=== PATIENT | female | born 1930 | race Caucasian/White ===

== ENCOUNTER 2016-11-06 17:05 | Inpatient (IN) | payer OTHER ==
[~2016-11-06] VITALS: Ht 152.4 cm; Wt 61.0 kg
[~2016-11-06 17:05] MED LIST: CHEWABLE MULTI1 EACH PO; COMBIGAN O20 DROP/5; COSOPT EYE DROPS5 ML LEFT EYE; FISH OIL 1,2001 EAC4 PO; GLUCOPHAGE500 MG PO; LISINOPRIL5 MG PO; PLAVIX75 MG PO; PREDNISOLONE AC15 ML RIGHT EYE; TEARS PURE DROP15 ML; VITAMIN D-32000 UNI1 PO; ZIOPTAN 0.00151 EACH BOTH EYES
[2016-11-06 18:37] LABS: EOSINOPHIL (%) 0 % (0-5); HEMATOCRIT 47.4 % (36.0-46.0); IMMATURE GRANULOCYTE (%) 0.7 % (0.0-0.7); IMMATURE GRANULOCYTE COUNT 0.1 K/uL; INSTRUMENT ABS NEUTROPHIL CT 15.6 K/uL; LYMPHOCYTE COUNT 0.6 K/uL (1.0-2.8); MCH 29.9 PG (29.0-34.0); MCHC 32.7 G/DL (30.0-36.0); MCV 91.3 FL (83-99); MEAN PLAT.VOLUME 10.4 uM^3 (9.5-12.4); MONOCYTE (%) 5.3 % (3-12); MONOCYTE COUNT 0.9 K/uL (0-0.8); NEUTROPHIL (%) 90.6 % (45-76); NEUTROPHIL COUNT 15.6 K/uL (1.8-6.4); PLATELET COUNT 220 K/uL (156-360); RBC DIS.WIDTH-SD 43.8 % (39-53); RED BLOOD COUNT 5.19 M/uL (3.80-5.20); WHITE BLOOD COUNT 17.3 K/uL (4.1-10.2)
[2016-11-06 18:50] LABS: CHLORIDE 104 mEq/L (99-109); POTASSIUM 4.5 mEq/L (3.7-5.4); SODIUM 141 mEq/L (136-147)
[2016-11-06 18:52] LABS: GLUCOSE 165 mg/dL (70-99)
[2016-11-06 18:53] LABS: ANION GAP 15 MEQ/L (2-14)
[2016-11-06 18:56] LABS: GFR ESTIMATE (CALCULATED) > 59 mL/min/
[2016-11-06 18:57] LABS: UREA NITROGEN (BUN) 18 mg/dL (9-23)
[2016-11-06 18:58] LABS: CREATINE KINASE 304 IU/L (1-294)
[2016-11-06 18:59] LABS: TROP-I INTERPRETATION NEGATIVE; TROPONIN-I < 0.01 ng/mL (0.0-0.30)
[2016-11-06] MEDS ORDERED: MYRBETRIQ25 MG PO (21:23)
[2016-11-06] MEDS ORDERED: LATANOPROST2.5 ML BOTH EYES (21:23)
[2016-11-06] MEDS ORDERED: VITAMIN D2000 UNIT PO (21:24)
[2016-11-06] MEDS ORDERED: KRILL OIL 1,001 EACH PO (21:24)
[2016-11-06] MEDS ORDERED: LO-DOSE ASPIRIN81 M1 PO (21:25)
[2016-11-06] MEDS ORDERED: CHEWABLE-VITE1 EACH PO (21:25)
[2016-11-06] MEDS ORDERED: PRAVASTATIN SOD40 MG PO (21:25)
[2016-11-06] MEDS ORDERED: [UNRECOGNIZED DRUG - REMARK] RIGHT EYE (21:27)
[2016-11-06 21:28] LABS: ADD MIUA? YES; BILIRUBIN NEGATIVE; BLOOD MODERATE; COLOR YELLOW ((YELLOW)); GLUCOSE (STRIP) 50; KETONES 80; LEUKOCYTES NEGATIVE; NITRITE NEGATIVE; PROTEIN (STRIP) 30; SPECIFIC GRAVITY 1.013 (1.000-1.030); UROBILINOGEN 0.2 MG/DL (0.2-1.0)
[2016-11-06 22:02] LABS: BACTERIA RARE /HPF; EPITHELIAL CELLS NONE SEEN /HPF; MUCUS TRACE /LPF; RED BLOOD CELLS TNTC /HPF (0-5); UCUL ADDED? NO
[2016-11-07 03:42] VITALS: BP 150/68
[2016-11-07 06:48] LABS: TROP-I INTERPRETATION NEGATIVE; TROPONIN-I 0.01 ng/mL (0.0-0.30)
[2016-11-07 08:47] VITALS: BP 144/74
[2016-11-07 09:34] LABS: HEMATOCRIT 39.9 % (36.0-46.0); MCH 29.5 PG (29.0-34.0); MCHC 31.8 G/DL (30.0-36.0); MCV 92.8 FL (83-99); MEAN PLAT.VOLUME 10.6 uM^3 (9.5-12.4); PLATELET COUNT 200 K/uL (156-360); RBC DIS.WIDTH-CV 13.4 % (11.8-14.6); RBC DIS.WIDTH-SD 45.7 % (39-53); WHITE BLOOD COUNT 12.7 K/uL (4.1-10.2)
[2016-11-07 11:07] LABS: ANION GAP 10 MEQ/L (2-14); CHLORIDE 109 MEQ/L (99-109); POTASSIUM 4.1 MEQ/L (3.7-5.4); SAMPLE HEMOLYSIS CHECK 0; SAMPLE ICTERIC CHECK 0; SAMPLE LIPEMIA CHECK 0; SODIUM 142 MEQ/L (136-147)
[2016-11-07 11:13] LABS: GFR ESTIMATE (CALCULATED) > 59 mL/min/; GLUCOSE 138 mg/dL (70-99); UREA NITROGEN (BUN) 15 mg/dL (9-23)
[2016-11-07 12:50] VITALS: BP 162/76
[2016-11-07 13:33] LABS: TROP-I INTERPRETATION NEGATIVE; TROPONIN-I 0.02 ng/mL (0.0-0.30)
[2016-11-07 16:55] VITALS: BP 165/74
[2016-11-07 21:00] VITALS: BP 160/72
[2016-11-08 09:38] LABS: MCH 29.9 PG (29.0-34.0); MCHC 32.9 G/DL (30.0-36.0); MCV 91.1 FL (83-99); MEAN PLAT.VOLUME 10.3 uM^3 (9.5-12.4); PLATELET COUNT 210 K/uL (156-360); RBC DIS.WIDTH-CV 13.1 % (11.8-14.6); RBC DIS.WIDTH-SD 43.7 % (39-53); RED BLOOD COUNT 4.61 M/uL (3.80-5.20); WHITE BLOOD COUNT 13.7 K/uL (4.1-10.2)
[2016-11-08 10:20] LABS: ANION GAP 14 MEQ/L (2-14); CHLORIDE 105 MEQ/L (99-109); GFR ESTIMATE (CALCULATED) > 59 mL/min/; GLUCOSE 164 mg/dL (70-99); POTASSIUM 3.8 MEQ/L (3.7-5.4); SAMPLE HEMOLYSIS CHECK 0; SAMPLE ICTERIC CHECK 0; SAMPLE LIPEMIA CHECK 0; SODIUM 139 MEQ/L (136-147); UREA NITROGEN (BUN) 14 mg/dL (9-23)
[2016-11-08 12:00] VITALS: BP 115/60
[2016-11-08 21:08] VITALS: BP 146/73
[2016-11-08 23:49] VITALS: BP 152/69
[2016-11-09 07:39] VITALS: BP 143/71
[2016-11-09] MEDS ORDERED: MECLIZINE HCL25 MG PO ×2 (09:39→09:40)
[2016-11-09 16:28] VITALS: BP 128/66
[2016-11-10 05:41] LABS: HEMATOCRIT 35.2 % (36.0-46.0); MCH 30.4 PG (29.0-34.0); MCHC 33.5 G/DL (30.0-36.0); MCV 90.7 FL (83-99); MEAN PLAT.VOLUME 10.5 uM^3 (9.5-12.4); PLATELET COUNT 179 K/uL (156-360); RBC DIS.WIDTH-CV 13.3 % (11.8-14.6); RBC DIS.WIDTH-SD 44.2 % (39-53); RED BLOOD COUNT 3.88 M/uL (3.80-5.20); WHITE BLOOD COUNT 9.5 K/uL (4.1-10.2)
[2016-11-10 06:00] LABS: ANION GAP 8 MEQ/L (2-14); CHLORIDE 108 MEQ/L (99-109); GFR ESTIMATE (CALCULATED) > 59 mL/min/; GLUCOSE 120 mg/dL (70-99); POTASSIUM 3.5 MEQ/L (3.7-5.4); SAMPLE HEMOLYSIS CHECK 0; SAMPLE ICTERIC CHECK 0; SAMPLE LIPEMIA CHECK 0; SODIUM 141 MEQ/L (136-147); UREA NITROGEN (BUN) 16 mg/dL (9-23)
[2016-11-10 07:52] VITALS: BP 173/79
[2016-11-10 08:31] LABS: INTACT PARATHYROID HORMONE 151 pg/mL (10-69)
[2016-11-10 15:51] VITALS: BP 143/63
[2016-11-10 23:56] VITALS: BP 121/68
[2016-11-11 07:53] VITALS: BP 137/62
[2016-11-11 15:46] VITALS: BP 120/59
[2016-11-12] VITALS: BP 117/62
[2016-11-12 07:16] VITALS: BP 154/85
[2016-11-12 07:45] VITALS: BP 135/68
[2016-11-12 16:15] VITALS: BP 128/58
[2016-11-13 08:39] VITALS: BP 140/69
[2016-11-13 16:01] VITALS: BP 126/63
[2016-11-13 23:48] VITALS: BP 125/67
[2016-11-14 08:09] VITALS: BP 143/85
[2016-11-14] MEDS ORDERED: DOCUSATE SODIU100 MG PO (12:06)
[2016-11-14] MEDS ORDERED: RISPERIDONE1 MG PO (12:06)
[2016-11-14] MEDS ORDERED: CEFDINIR300 MG PO (12:06)
[2016-11-14] MEDS ORDERED: FAMOTIDINE20 MG PO (12:06)
[2016-11-14] MEDS ORDERED: DONEPEZIL HCL5 MG PO (12:06)
[2016-11-14 15:15] VITALS: BP 145/74
[2016-11-15] VITALS: BP 141/79
[2016-11-15 07:54] VITALS: BP 134/65
[2016-11-15 16:15] VITALS: BP 132/72
[2016-11-16] VITALS: BP 106/52
[2016-11-16 08:03] VITALS: BP 132/70
[2016-11-16 15:54] VITALS: BP 129/68
[2016-11-17 07:46] VITALS: BP 138/79
[2016-11-17] MEDS ORDERED: CEFDINIR300 MG PO (13:06)
[2016-11-17 15:20] VITALS: BP 123/61
== END 2016-11-17 17:55 | DRG 563 ==
LOC: EME 17:05 → EDOF 11-07 00:27 → 5WEST 11-07 00:27 → EDOF 11-07 00:27 → 5WEST 11-07 02:10 → 5SOUTH 11-08 11:28
PROVIDERS: Emergency Medicine; Hospitalist; Nurse Practitioner Family; Physician Assistant Medical
DX: S42.294A Other nondisplaced fracture of upper end of right humerus, initial encounter for closed fracture (principal); M62.82 Rhabdomyolysis; N30.00 Acute cystitis without hematuria; F01.51 Vascular dementia, unspecified severity, with behavioral disturbance; F02.81 Dementia in other diseases classified elsewhere, unspecified severity, with behavioral disturbance; E83.52 Hypercalcemia; G62.9 Polyneuropathy, unspecified; E86.1 Hypovolemia; W01.0XXA Fall on same level from slipping, tripping and stumbling without subsequent striking against object, initial encounter; R26.2 Difficulty in walking, not elsewhere classified; R41.0 Disorientation, unspecified; N20.0 Calculus of kidney; R00.0 Tachycardia, unspecified; I73.00 Raynaud's syndrome without gangrene; I34.1 Nonrheumatic mitral (valve) prolapse; I71.9 Aortic aneurysm of unspecified site, without rupture; G30.1 Alzheimer's disease with late onset; E78.5 Hyperlipidemia, unspecified; E16.4 Increased secretion of gastrin; Z85.3 Personal history of malignant neoplasm of breast; Y92.009 Unspecified place in unspecified non-institutional (private) residence as the place of occurrence of the external cause; K21.9 Gastro-esophageal reflux disease without esophagitis
CPT/HCPCS: 70450; 71250; 72125; 73030; 73060; 73560; 74176; 80048; 81003; 82330; 82550; 83970; 84100; 84484; 85025; 85027; 87086; 93005; 97530 GO; 97530 GP; 99281; 99285; G0378; G8978 CL; G8979 CJ; G8987 GO CM; G8988 GO CL; J0696; J1644; J3010; J7030; J7050

== ENCOUNTER 2017-06-18 10:19 | Observation (INO) | payer OTHER ==
[~2017-06-18] VITALS: Ht 152.4 cm; Wt 61.0 kg
[~2017-06-18 10:19] MED LIST changes: +CEFDINIR300 MG PO; +CHEWABLE-VITE1 EACH PO; +DOCUSATE SODIU100 MG PO; +DONEPEZIL HCL5 MG PO; +FAMOTIDINE20 MG PO; +KRILL OIL 1,001 EACH PO; +LATANOPROST2.5 ML BOTH EYES; +LO-DOSE ASPIRIN81 M1 PO; +MECLIZINE HCL25 MG PO; +MYRBETRIQ25 MG PO; +PRAVASTATIN SOD40 MG PO; +RISPERIDONE1 MG PO; +VITAMIN D2000 UNIT PO; +[UNRECOGNIZED DRUG - REMARK] RIGHT EYE
[2017-06-18 11:57] LABS: BASOPHIL (%) 0.5 % (0-1); BASOPHIL COUNT 0.1 K/uL (0-0.1); EOSINOPHIL (%) 0.7 % (0-5); EOSINOPHIL COUNT 0.1 K/uL (0-0.3); HEMATOCRIT 43.5 % (36.0-46.0); HEMOGLOBIN 13.9 G/DL (11.9-15.5); IMMATURE GRANULOCYTE (%) 0.4 % (0.0-0.7); LYMPHOCYTE (%) 4.3 % (15-42); LYMPHOCYTE COUNT 0.6 K/uL (1.0-2.8); MCH 29.9 PG (29.0-34.0); MCV 93.5 FL (83-99); MONOCYTE (%) 4.6 % (3-12); MONOCYTE COUNT 0.6 K/uL (0-0.8); NEUTROPHIL (%) 89.5 % (45-76); NEUTROPHIL COUNT 11.5 K/uL (1.8-6.4); RBC DIS.WIDTH-CV 13.9 % (11.8-14.6); RBC DIS.WIDTH-SD 46.9 % (39-53); RED BLOOD COUNT 4.65 M/uL (3.80-5.20); WHITE BLOOD COUNT 12.8 K/uL (4.1-10.2)
[2017-06-18 12:06] LABS: CHLORIDE 105 mEq/L (99-109); POTASSIUM 4.6 mEq/L (3.7-5.4)
[2017-06-18 12:07] LABS: SODIUM 139 mEq/L (136-147)
[2017-06-18 12:09] LABS: GLUCOSE 158 mg/dL (70-99); TOTAL PROTEIN 6.3 g/dL (6.4-8.3)
[2017-06-18 12:11] LABS: TOTAL BILIRUBIN 0.3 mg/dL (0.0-1.0)
[2017-06-18 12:12] LABS: ALKALINE PHOSPHATASE 113 IU/L (3-129); CREATININE 0.8 mg/dL (0.6-1.3); GFR ESTIMATE (CALCULATED) > 59 mL/min/
[2017-06-18 12:14] LABS: AST (GOT) 18 IU/L (2-34); UREA NITROGEN (BUN) 17 mg/dL (9-23)
[2017-06-18 12:15] LABS: ALT (GPT) 13 IU/L (3-49)
[2017-06-18 12:16] LABS: LIPASE 15 U/L (1.0-51.0)
[2017-06-18 12:38] LABS: HEMATOLOGY COMMENT 1 SMEAR COMPATIBLE; PLAT.SUFFICIENCY ADEQUATE; PLATELET COUNT 167 K/uL (156-360)
[2017-06-18 13:37] LABS: APPEARANCE SL.HAZY ((CLEAR)); BILIRUBIN NEGATIVE; BLOOD NEGATIVE; COLOR YELLOW ((YELLOW)); GLUCOSE (STRIP) NEGATIVE; KETONES NEGATIVE; LEUKOCYTES LARGE; NITRITE POSITIVE; PROTEIN (STRIP) 30; SPECIFIC GRAVITY 1.012 (1.000-1.030); UROBILINOGEN 0.2 MG/DL (0.2-1.0)
[2017-06-18 13:43] LABS: BACTERIA 2+ /HPF; EPITHELIAL CELLS 1+ /HPF; MUCUS TRACE /LPF; WHITE BLOOD CELLS 20-30 /HPF (0-5)
[2017-06-18 20:14] VITALS: BP 150/67
[2017-06-19] VITALS: BP 112/57
[2017-06-19 04:00] VITALS: BP 104/53
[2017-06-19 05:54] LABS: HEMATOCRIT 36.3 % (36.0-46.0); MCH 29.7 PG (29.0-34.0); MCHC 31.7 G/DL (30.0-36.0); MCV 93.8 FL (83-99); PLATELET COUNT 142 K/uL (156-360); RBC DIS.WIDTH-CV 14.2 % (11.8-14.6); RBC DIS.WIDTH-SD 48.2 % (39-53); RED BLOOD COUNT 3.87 M/uL (3.80-5.20); WHITE BLOOD COUNT 12.8 K/uL (4.1-10.2)
[2017-06-19 06:07] LABS: CHLORIDE 104 MEQ/L (99-109); CREATININE 0.9 MG/DL (0.6-1.3); GFR ESTIMATE (CALCULATED) > 59 mL/min/; GLUCOSE 126 mg/dL (70-99); POTASSIUM 4.2 MEQ/L (3.7-5.4); SODIUM 137 MEQ/L (136-147); UREA NITROGEN (BUN) 23 mg/dL (9-23)
[2017-06-19 06:23] LABS: HEMOGLOBIN 11.5 G/DL (11.9-15.5)
[2017-06-19 08:00] VITALS: BP 94/52
[2017-06-19 11:47] VITALS: BP 109/56
[2017-06-19 16:16] VITALS: BP 141/63
[2017-06-19 23:55] VITALS: BP 143/78
[2017-06-20 08:16] VITALS: BP 120/81
[2017-06-20 11:23] VITALS: BP 118/65
[2017-06-20 16:00] LABS: HEMATOCRIT 37.6 % (36.0-46.0); HEMOGLOBIN 11.9 G/DL (11.9-15.5); MCH 29.3 PG (29.0-34.0); MCHC 31.6 G/DL (30.0-36.0); MCV 92.6 FL (83-99); PLATELET COUNT 144 K/uL (156-360); RBC DIS.WIDTH-CV 13.7 % (11.8-14.6); RBC DIS.WIDTH-SD 46.5 % (39-53); RED BLOOD COUNT 4.06 M/uL (3.80-5.20); WHITE BLOOD COUNT 8.9 K/uL (4.1-10.2)
[2017-06-20 16:07] VITALS: BP 134/61
[2017-06-20 17:16] LABS: CHLORIDE 101 MEQ/L (99-109); CREATININE 0.8 MG/DL (0.6-1.3); GFR ESTIMATE (CALCULATED) > 59 mL/min/; GLUCOSE 167 mg/dL (70-99); POTASSIUM 3.9 MEQ/L (3.7-5.4); SODIUM 136 MEQ/L (136-147); UREA NITROGEN (BUN) 23 mg/dL (9-23)
[2017-06-20 20:40] VITALS: BP 161/104
[2017-06-20 23:35] VITALS: BP 151/84
[2017-06-21 07:15] VITALS: BP 130/80
[2017-06-21 11:41] VITALS: BP 139/79
[2017-06-21 15:32] VITALS: BP 145/73
[2017-06-21 20:00] VITALS: BP 136/71
[2017-06-22 00:16] VITALS: BP 141/98
[2017-06-22 05:51] LABS: BASOPHIL (%) 0.4 % (0-1); EOSINOPHIL (%) 0.8 % (0-5); EOSINOPHIL COUNT 0.1 K/uL (0-0.3); HEMATOCRIT 39.1 % (36.0-46.0); HEMOGLOBIN 12.7 G/DL (11.9-15.5); IMMATURE GRANULOCYTE (%) 0.3 % (0.0-0.7); LYMPHOCYTE (%) 6.6 % (15-42); LYMPHOCYTE COUNT 0.5 K/uL (1.0-2.8); MCH 29.1 PG (29.0-34.0); MCHC 32.5 G/DL (30.0-36.0); MCV 89.5 FL (83-99); MONOCYTE (%) 15.6 % (3-12); MONOCYTE COUNT 1.1 K/uL (0-0.8); NEUTROPHIL (%) 76.3 % (45-76); NEUTROPHIL COUNT 5.4 K/uL (1.8-6.4); PLATELET COUNT 160 K/uL (156-360); RBC DIS.WIDTH-CV 13.5 % (11.8-14.6); RBC DIS.WIDTH-SD 44.6 % (39-53); RED BLOOD COUNT 4.37 M/uL (3.80-5.20); WHITE BLOOD COUNT 7.1 K/uL (4.1-10.2)
[2017-06-22 06:16] LABS: ALBUMIN 2.8 G/DL (3.2-4.8); ALKALINE PHOSPHATASE 79 IU/L (3-129); ALT (GPT) 16 IU/L (3-49); AST (GOT) 18 IU/L (2-34); CHLORIDE 100 MEQ/L (99-109); CREATININE 0.5 MG/DL (0.6-1.3); GFR ESTIMATE (CALCULATED) > 59 mL/min/; GLUCOSE 137 mg/dL (70-99); POTASSIUM 3.2 MEQ/L (3.7-5.4); SODIUM 139 MEQ/L (136-147); TOTAL BILIRUBIN 0.4 MG/DL (0.0-1.0); UREA NITROGEN (BUN) 14 mg/dL (9-23)
[2017-06-22 08:18] VITALS: BP 154/63
[2017-06-22 08:30] VITALS: BP 142/94
[2017-06-22 11:49] VITALS: BP 137/74
[2017-06-22 16:11] VITALS: BP 130/75
[2017-06-22 19:00] VITALS: BP 127/60
[2017-06-23 00:12] VITALS: BP 149/67
[2017-06-23 07:36] VITALS: BP 120/55
[2017-06-23 09:11] LABS: CHLORIDE 103 MEQ/L (99-109); CREATININE 0.6 MG/DL (0.6-1.3); GFR ESTIMATE (CALCULATED) > 59 mL/min/; GLUCOSE 121 mg/dL (70-99); MAGNESIUM 1.7 mg/dl (1.3-2.7); POTASSIUM 3.7 MEQ/L (3.7-5.4); SODIUM 140 MEQ/L (136-147); UREA NITROGEN (BUN) 15 mg/dL (9-23)
[2017-06-23 12:52] VITALS: BP 118/56
[2017-06-23 15:10] VITALS: BP 130/69
[2017-06-23] MEDS ORDERED: CEFTIN250 MG PO (16:23)
[2017-06-23 22:08] VITALS: BP 149/85
[2017-06-24 00:56] VITALS: BP 139/69
[2017-06-24 09:09] VITALS: BP 160/70
[2017-06-24 11:27] VITALS: BP 147/77
== END 2017-06-24 15:07 | disposition home health service (06) ==
LOC: EME 10:19 → 5WEST 14:14 → EDOF 14:14 → ENRESERV 14:16 → 5WEST 19:59
PROVIDERS: Emergency Medicine; Hospitalist; Internal Medicine; Nurse Practitioner Family; Physician Assistant
DX: N13.2 Hydronephrosis with renal and ureteral calculous obstruction (principal); N39.0 Urinary tract infection, site not specified; F01.50 Vascular dementia, unspecified severity, without behavioral disturbance, psychotic disturbance, mood disturbance, and anxiety; I73.00 Raynaud's syndrome without gangrene; Z85.3 Personal history of malignant neoplasm of breast; H54.8 Legal blindness, as defined in USA; Z60.2 Problems related to living alone; E16.4 Increased secretion of gastrin; E78.5 Hyperlipidemia, unspecified; K21.9 Gastro-esophageal reflux disease without esophagitis; Z87.891 Personal history of nicotine dependence; I10 Essential (primary) hypertension; I71.4 Abdominal aortic aneurysm, without rupture; Z79.82 Long term (current) use of aspirin; Z91.041 Radiographic dye allergy status
CPT/HCPCS: 70450; 71046; 74176; 80048; 80053; 81003; 83605; 83690; 83735; 83880; 85025; 85027; 87040; 93005; 99281; 99285; G0378; G8978 GP CK; G8979 GP CI; G8980 GP CK; G8987 CK; G8988 GO CJ; J0696; J1650; J1885; J2270; J2405; J7030

== ENCOUNTER 2017-07-02 11:27 | Observation (INO) | payer OTHER ==
[~2017-07-02] VITALS: Ht 149.9 cm; Wt 63.4 kg
[~2017-07-02 11:27] MED LIST changes: +CEFTIN250 MG PO
[2017-07-02 16:14] LABS: BASOPHIL (%) 0.6 % (0-1); BASOPHIL COUNT 0.1 K/uL (0-0.1); EOSINOPHIL (%) 1.8 % (0-5); EOSINOPHIL COUNT 0.2 K/uL (0-0.3); HEMATOCRIT 39.5 % (36.0-46.0); HEMOGLOBIN 12.5 G/DL (11.9-15.5); IMMATURE GRANULOCYTE (%) 0.6 % (0.0-0.7); LYMPHOCYTE (%) 12.9 % (15-42); LYMPHOCYTE COUNT 1.4 K/uL (1.0-2.8); MCH 29.2 PG (29.0-34.0); MCHC 31.6 G/DL (30.0-36.0); MCV 92.3 FL (83-99); MONOCYTE (%) 9.2 % (3-12); NEUTROPHIL (%) 74.9 % (45-76); NEUTROPHIL COUNT 8.1 K/uL (1.8-6.4); RBC DIS.WIDTH-CV 14.1 % (11.8-14.6); RED BLOOD COUNT 4.28 M/uL (3.80-5.20); WHITE BLOOD COUNT 10.9 K/uL (4.1-10.2)
[2017-07-02 16:20] LABS: PLATELET COUNT 291 K/uL (156-360)
[2017-07-02 16:25] LABS: CHLORIDE 106 mEq/L (99-109); POTASSIUM 4.6 mEq/L (3.7-5.4); SODIUM 140 mEq/L (136-147)
[2017-07-02 16:27] LABS: GLUCOSE 114 mg/dL (70-99)
[2017-07-02 16:30] LABS: CREATININE 0.8 mg/dL (0.6-1.3); GFR ESTIMATE (CALCULATED) > 59 mL/min/
[2017-07-02 16:31] LABS: UREA NITROGEN (BUN) 20 mg/dL (9-23)
[2017-07-02 20:30] VITALS: BP 132/65
[2017-07-02 23:11] VITALS: BP 136/66
[2017-07-03 04:35] VITALS: BP 151/76
[2017-07-03 08:00] VITALS: BP 121/72
[2017-07-03 12:00] VITALS: BP 140/65
[2017-07-03 16:00] VITALS: BP 140/65
[2017-07-03 17:50] VITALS: BP 109/56
[2017-07-04 00:19] VITALS: BP 119/56
[2017-07-04 08:10] VITALS: BP 148/56
[2017-07-04] MEDS ORDERED: LOVENOX30 MG/0.3 SC (09:31)
[2017-07-04] MEDS ORDERED: TRAMADOL HCL50 MG PO (09:31)
[2017-07-04 13:14] LABS: FOLIC ACID (FOLATE) 10.9 NG/ML (5.0-22.0)
[2017-07-04 15:17] VITALS: BP 107/54
[2017-07-05 00:17] VITALS: BP 108/55
[2017-07-05 08:07] VITALS: BP 124/61
[2017-07-05 15:28] VITALS: BP 138/63
[2017-07-05 23:36] VITALS: BP 129/61
[2017-07-06 07:55] VITALS: BP 130/63
[2017-07-06 15:42] VITALS: BP 136/66
[2017-07-06 23:39] VITALS: BP 137/63
[2017-07-07 08:05] VITALS: BP 133/66
[2017-07-07 16:33] VITALS: BP 124/61
[2017-07-07 23:40] VITALS: BP 130/63
[2017-07-08 07:58] VITALS: BP 121/59
[2017-07-08 13:12] LABS: APPEARANCE CLOUDY ((CLEAR)); BILIRUBIN NEGATIVE; BLOOD MODERATE; COLOR YELLOW ((YELLOW)); GLUCOSE (STRIP) NEGATIVE; KETONES NEGATIVE; LEUKOCYTES LARGE; NITRITE NEGATIVE; PROTEIN (STRIP) 30; SPECIFIC GRAVITY 1.016 (1.000-1.030); UROBILINOGEN 0.2 MG/DL (0.2-1.0)
[2017-07-08 13:40] LABS: BACTERIA 2+ /HPF; EPITHELIAL CELLS NONE SEEN /HPF; MUCUS TRACE /LPF; RED BLOOD CELLS NONE SEEN /HPF (0-5); UCUL ADDED? YES; WHITE BLOOD CELLS TNTC /HPF (0-5)
[2017-07-08 16:32] VITALS: BP 119/59; BP 124/60
[2017-07-08 23:34] VITALS: BP 133/60
[2017-07-09 07:34] VITALS: BP 109/54
[2017-07-09 15:23] VITALS: BP 122/58
[2017-07-09 23:46] VITALS: BP 121/59
[2017-07-10 03:31] VITALS: BP 134/88
[2017-07-10 07:48] VITALS: BP 109/75
[2017-07-10 20:00] VITALS: BP 125/75
[2017-07-10 23:21] VITALS: BP 134/62
[2017-07-11 08:12] VITALS: BP 144/68
[2017-07-11 16:34] VITALS: BP 138/66
[2017-07-12 00:06] VITALS: BP 123/60
[2017-07-12 08:41] VITALS: BP 108/52
[2017-07-12 16:30] VITALS: BP 110/58
[2017-07-12 20:01] VITALS: BP 130/65
[2017-07-12 23:56] VITALS: BP 119/93
[2017-07-13 07:40] VITALS: BP 126/80
[2017-07-13 16:30] VITALS: BP 128/80
[2017-07-13 23:26] VITALS: BP 124/59
[2017-07-14 07:53] VITALS: BP 122/60
[2017-07-14 17:14] VITALS: BP 128/74
[2017-07-14 23:08] VITALS: BP 100/57
[2017-07-15 08:01] VITALS: BP 132/58
[2017-07-15 23:43] VITALS: BP 131/60
[2017-07-16 07:49] VITALS: BP 124/61
[2017-07-16 16:08] VITALS: BP 130/62
[2017-07-16 23:21] VITALS: BP 134/59
[2017-07-17 08:11] VITALS: BP 139/94
[2017-07-17 15:59] VITALS: BP 112/55
[2017-07-17 23:11] VITALS: BP 130/73
[2017-07-18 08:04] VITALS: BP 136/64
[2017-07-18 23:37] VITALS: BP 124/58
[2017-07-19 08:04] VITALS: BP 122/60
[2017-07-19 15:34] VITALS: BP 128/68
[2017-07-19 23:49] VITALS: BP 154/70
[2017-07-20 07:42] VITALS: BP 143/68
[2017-07-20 23:16] VITALS: BP 121/56
[2017-07-21 07:57] VITALS: BP 161/75
[2017-07-21 15:37] VITALS: BP 124/63
[2017-07-21 23:26] VITALS: BP 117/58
[2017-07-22 08:07] VITALS: BP 137/64
[2017-07-22 16:02] VITALS: BP 123/58
[2017-07-22 23:19] VITALS: BP 135/62
[2017-07-23 12:54] VITALS: BP 140/71
[2017-07-23 17:11] VITALS: BP 130/66
[2017-07-24 00:17] VITALS: BP 125/62
[2017-07-24 08:28] VITALS: BP 130/68
[2017-07-24 15:38] VITALS: BP 136/93
[2017-07-24 23:27] VITALS: BP 134/72
[2017-07-25 08:00] VITALS: BP 115/78
[2017-07-25 16:52] VITALS: BP 155/79
[2017-07-25 23:31] VITALS: BP 145/74
[2017-07-26 16:30] VITALS: BP 126/82
[2017-07-26 23:20] VITALS: BP 149/71
[2017-07-27 07:45] VITALS: BP 138/76
[2017-07-27 12:03] VITALS: BP 142/80
[2017-07-27 16:30] VITALS: BP 148/70
[2017-07-27 23:24] VITALS: BP 118/74
[2017-07-28 08:21] VITALS: BP 144/74
[2017-07-28 16:00] VITALS: BP 132/64
[2017-07-28 23:28] VITALS: BP 143/63
[2017-07-29 08:08] VITALS: BP 144/66
[2017-07-29 16:20] VITALS: BP 127/67
[2017-07-29 23:55] VITALS: BP 125/60
[2017-07-30 07:59] VITALS: BP 159/74
[2017-07-30 16:15] VITALS: BP 142/68
[2017-07-30 23:28] VITALS: BP 134/63
[2017-07-31 07:43] VITALS: BP 161/84
[2017-07-31 17:15] VITALS: BP 112/64
[2017-07-31 23:19] VITALS: BP 126/56
[2017-08-01 07:57] VITALS: BP 135/70
[2017-08-01 17:09] VITALS: BP 130/69
[2017-08-01 23:31] VITALS: BP 123/57
[2017-08-02 08:15] VITALS: BP 124/64
[2017-08-02 15:50] VITALS: BP 116/78
[2017-08-02 23:26] VITALS: BP 135/60
[2017-08-03 08:04] VITALS: BP 136/78
[2017-08-03 15:48] VITALS: BP 126/78
[2017-08-03 23:33] VITALS: BP 112/83
[2017-08-04 08:19] VITALS: BP 140/78
[2017-08-04 16:03] VITALS: BP 132/68
[2017-08-05 00:17] VITALS: BP 122/71
[2017-08-05 08:50] VITALS: BP 152/70
[2017-08-05 16:37] VITALS: BP 132/61
[2017-08-06 00:15] VITALS: BP 106/56
[2017-08-06 08:35] VITALS: BP 122/60
[2017-08-06 16:43] VITALS: BP 121/58
[2017-08-07 00:14] VITALS: BP 132/84
[2017-08-07 08:16] VITALS: BP 140/86
[2017-08-07 17:04] VITALS: BP 160/82
[2017-08-07 23:13] VITALS: BP 109/51
[2017-08-08 08:51] VITALS: BP 166/102
[2017-08-08 15:59] VITALS: BP 130/71
[2017-08-08 23:54] VITALS: BP 137/72
[2017-08-09 08:41] VITALS: BP 128/76
[2017-08-09 16:21] VITALS: BP 138/78
[2017-08-09 23:43] VITALS: BP 125/57
[2017-08-10 08:16] VITALS: BP 142/74
[2017-08-10 15:50] VITALS: BP 138/80
[2017-08-11 00:32] VITALS: BP 122/72
[2017-08-11 15:10] VITALS: BP 124/59
[2017-08-12 07:33] VITALS: BP 118/57
[2017-08-12 16:04] VITALS: BP 119/66
[2017-08-12 23:17] VITALS: BP 133/74
[2017-08-13 07:53] VITALS: BP 142/86
[2017-08-13 16:14] VITALS: BP 118/80
[2017-08-14 01:28] VITALS: BP 123/78
[2017-08-14 08:29] VITALS: BP 128/68
[2017-08-14 17:05] VITALS: BP 128/70
[2017-08-14 23:41] VITALS: BP 132/63
[2017-08-15 08:12] VITALS: BP 143/71
[2017-08-15 16:00] VITALS: BP 110/76
[2017-08-15 23:52] VITALS: BP 135/79
[2017-08-16 08:30] VITALS: BP 142/78
== END 2017-08-16 17:00 ==
LOC: DELPENDDIS → EME 11:27 → EDOF 18:26 → 3EAST 18:26 → ENRESERV 18:32 → 3EAST 20:07 → ENPENDDIS 07-13 → 3EAST 08-16 17:00
PROVIDERS: Emergency Medicine; Orthopaedic Surgery; Psychiatry & Neurology Psychiatry
DX: S82.852A Displaced trimalleolar fracture of left lower leg, initial encounter for closed fracture (principal); W01.0XXA Fall on same level from slipping, tripping and stumbling without subsequent striking against object, initial encounter; G30.9 Alzheimer's disease, unspecified; F02.80 Dementia in other diseases classified elsewhere, unspecified severity, without behavioral disturbance, psychotic disturbance, mood disturbance, and anxiety; F60.9 Personality disorder, unspecified; H54.8 Legal blindness, as defined in USA; Z79.82 Long term (current) use of aspirin; Z85.3 Personal history of malignant neoplasm of breast; Z86.73 Personal history of transient ischemic attack (TIA), and cerebral infarction without residual deficits; Z87.891 Personal history of nicotine dependence
CPT/HCPCS: 71045; 73590; 73610; 80048; 81003; 82607; 82746; 84443; 85025; 87077; 87086; 87186; 97530 GO; 97530 GP; 99281; 99285; G0378; G8978 GP CJ; G8978 GP CM; G8979 GP CI; G8979 GP CK; G8980 CJ; J1650